=== PATIENT | female | born 1980 | race Two or more races ===

== ENCOUNTER 2020-05-30 22:36 | Emergency (ER) | payer BC ==
[2020-05-30] MEDS ORDERED: Sodium Chloride 0.9% 10 ML Syringe FLUSH PRN (23:08)
[2020-05-30] MEDS ORDERED: Lactated Ringers 1,000 ML IV ONE (23:10)
--- NOTE | 2020-05-30 23:13 | EDM.PDOC ---
ED HPI GENERAL MEDICAL PROBLEM - General Stated Complaint: SOB AND HEART PALPITIONS Time Seen by Provider: 05/30/20 23:00 Source of Information: Reports: Patient History Limitations: Reports: No Limitations - History of Present Illness INITIAL COMMENTS - FREE TEXT/NARRATIVE: Patient comes emergency department today with complaints of shortness of breath and palpitations and racing heart sensation. This patient relates for the past 3 weeks she has had a new onset of racing heart sensation. She is getting more anxious about it has become short of breath over the past couple of days. She has had not had any syncope. No weakness dizziness lightheadedness. No recent falls head trauma. No pain in her chest. No recent fever or illness. No nausea no vomiting. No diarrhea. She has no increased pain and really does not have any pain anywhere. Abdominal pain nausea or vomiting. No hematuria dysuria or urinary frequency. She was tested for Covid a couple of days ago and was found to be negative. She has no medications that she takes chronically. She denies any recreational drug use or alcohol usage. No Covid exposure no Covid symptoms. She has had about a 10 pound weight loss in the past 3 weeks unintentional. - Related Data Home Meds: Home Meds atenoloL [Atenolol] 25 mg PO DAILY #30 tablet 05/31/20 [Rx] cephALEXin [Cephalexin] 500 mg PO QID #20 capsule 05/31/20 [Rx] ED ROS GENERAL - Review of Systems Review Of Systems: Comprehensive ROS is negative, except as noted in HPI. ED EXAM, GENERAL - Physical Exam Exam: See Below Exam Limited By: No Limitations General Appearance: Alert, WD/WN, No Apparent Distress Ears: Normal External Exam, Normal TMs Nose: Normal Inspection Throat/Mouth: Normal Inspection Head: Atraumatic, Normocephalic Neck: Normal Inspection, Supple, Non-Tender, Full Range of Motion Respiratory/Chest: No Respiratory Distress, Lungs Clear, Normal Breath Sounds, No Accessory Muscle Use, Chest Non-Tender Cardiovascular: Normal Peripheral Pulses, Regular Rate, Rhythm, Tachycardia Peripheral Pulses: 2+: Radial (L), Radial (R), Posterior Tibial (L), Posterior Tibial (R), Dorsalis Pedis (L), Dorsalis Pedis (R) GI/Abdominal: Normal Bowel Sounds, Soft, Non-Tender (Female) Exam: Deferred Rectal (Female) Exam: Deferred Back Exam: Normal Inspection, Full Range of Motion Extremities: Normal Inspection, Normal Range of Motion, Non-Tender, No Pedal Edema, Normal Capillary Refill Neurological: Alert, Oriented, Normal Cognition, No Motor/Sensory Deficits Psychiatric: Normal Affect, Normal Mood Skin Exam: Warm, Dry, Intact, Normal Color, No Rash #1 Interpretation EKG Date: 05/30/20 Time: 22:42 Rhythm: NSR (RSR ' in V1 or V2.) Rate (Beats/Min): 132 [place]: Normal P-Wave: Present QRS: Normal ST-T: Normal QT: Normal Comparison: NA - No Prior EKG Course - Vital Signs Last Recorded V/S: Last Vital Signs Temp Pulse 124 H 05/31/20 01:10 Resp BP 150/89 H 05/31/20 01:10 Pulse Ox - Orders/Labs/Meds Orders: Active Orders 24 hr Category Date Time Status EKG Documentation Completion [RC] STAT Care 05/30/20 23:08 Active Chest 2V [CR] Urgent Exams 05/30/20 23:07 Taken CULTURE URINE [RM] Stat Lab 05/30/20 23:23 Received THYROXINE (T4) [REF] Stat Lab 05/31/20 00:42 Received Sodium Chloride 0.9% [Saline Flush] Med 05/30/20 23:08 Active 10 ml FLUSH ASDIRECTED PRN Peripheral IV Insertion Adult [OM.PC] Stat Oth 05/30/20 23:08 Ordered Medication Orders Sodium Chloride (Saline Flush) 10 ml FLUSH ASDIRECTED PRN PRN Reason: Keep Vein Open Labs: Laboratory Tests 05/30/20 05/30/20 05/30/20 Range/Units 23:23 23:23 23:23 WBC (4.0-10.0) x10^3/uL RBC (4.00-5.50) x10^6/uL Hgb (12.0-16.0) g/dL Hct (33.0-47.0) % MCV (78.0-93.0) fL MCH (26.0-32.0) pg MCHC (32.0-36.0) g/dL RDW Coeff of Jimmie (10.0-15.0) % Plt Count (130-400) x10^3/uL Neut % (Auto) (50.0-80.0) % Lymph % (Auto) (25.0-50.0) % [place] % (Auto) (2.0-11.0) % Eos % (Auto) (0.0-4.0) % Baso % (Auto) (0.2-1.2) % Sodium (136-145) mmol/L Potassium (3.5-5.1) mmol/L Chloride (98-107) mmol/L Carbon Dioxide (21-32) mmol/L Anion Gap (10-20) mmol/L BUN (7-18) mg/dL Creatinine (0.55-1.02) mg/dL Est Cr Clr Drug Dosing Estimated GFR (MDRD) Glucose (74-106) mg/dL Calcium (8.5-10.1) mg/dL Corrected Calcium (8.5-10.1) mg/dL Magnesium (1.8-2.4) mg/dL Total Bilirubin (0.2-1.0) mg/dL AST (15-37) U/L ALT (14-59) U/L Alkaline Phosphatase (46-116) U/L Troponin I (<=0.056) ng/mL Total Protein (6.4-8.2) g/dL Albumin (3.4-5.0) g/dL Globulin Albumin/Globulin Ratio TSH, Ultra Sensitive (0.358-3.74) uIU/mL Urine Color Yellow (YELLOW) Urine Appearance Slightly cloudy H (CLEAR) Urine pH 7.0 (5.0-8.0) Ur Specific [place] 1.020 Urine Protein Negative (NEGATIVE) mg/dL Urine Glucose (UA) Negative (NEGATIVE) mg/dL Urine Ketones Negative (NEGATIVE) mg/dL Urine Occult Blood Negative (NEGATIVE) Urine Nitrite Positive H (NEGATIVE) Urine Bilirubin Negative (NEGATIVE) Urine Urobilinogen 0.2 (0.2) EU/dL Ur Leukocyte Esterase Trace H (NEGATIVE) Urine RBC 0-5 (NOT SEEN) /HPF Urine WBC 5-10 H (NOT SEEN) /HPF Ur Squamous Epith Cells Few H (NEGATIVE) /HPF Urine Bacteria Many H (NEGATIVE) /HPF Urine HCG, Qual Negative (NEGATIVE) Urine Opiates Screen Negative (NEGATIVE) Ur Buprenorphine Scrn Negative (NEGATIVE) Ur Oxycodone Screen Negative (NEGATIVE) Ur EDDP (Meth Metab) Negative (NEGATIVE) Urine Methadone Screen Negative (NEGATIVE) Ur Barbiturates Screen Negative (NEGATIVE) Ur Tricyclics Screen Negative (NEGATIVE) Ur Phencyclidine Scrn Negative (NEGATIVE) Ur Amphetamine Screen Negative (NEGATIVE) U Methamphetamines Scrn Negative (NEGATIVE) Urine MDMA Screen Negative (NEGATIVE) U Benzodiazepines Scrn Negative (NEGATIVE) U Cocaine Metab Screen Negative (NEGATIVE) U Marijuana (THC) Screen Negative (NEGATIVE) 05/30/20 05/30/20 Range/Units 23:30 23:30 WBC 5.1 (4.0-10.0) x10^3/uL RBC 4.60 (4.00-5.50) x10^6/uL Hgb 8.3 L (12.0-16.0) g/dL Hct 28.4 L (33.0-47.0) % MCV 61.7 L (78.0-93.0) fL MCH 18.0 L (26.0-32.0) pg MCHC 29.2 L (32.0-36.0) g/dL RDW Coeff of Jimmie 19.8 H (10.0-15.0) % Plt Count 348 (130-400) x10^3/uL Neut % (Auto) 48.8 L (50.0-80.0) % Lymph % (Auto) 32.7 (25.0-50.0) % [place] % (Auto) 16.1 H (2.0-11.0) % Eos % (Auto) 2.0 (0.0-4.0) % Baso % (Auto) 0.4 (0.2-1.2) % Sodium 142 (136-145) mmol/L Potassium 3.4 L (3.5-5.1) mmol/L Chloride 105 (98-107) mmol/L Carbon Dioxide 26 (21-32) mmol/L Anion Gap 14.4 (10-20) mmol/L BUN 8 (7-18) mg/dL Creatinine 0.8 (0.55-1.02) mg/dL Est Cr Clr Drug Dosing TNP Estimated GFR (MDRD) > 60 Glucose 80 (74-106) mg/dL Calcium 8.8 (8.5-10.1) mg/dL Corrected Calcium 9.20 (8.5-10.1) mg/dL Magnesium 1.9 (1.8-2.4) mg/dL Total Bilirubin 0.2 (0.2-1.0) mg/dL AST 19 (15-37) U/L ALT 30 (14-59) U/L Alkaline Phosphatase 61 (46-116) U/L Troponin I < 0.017 (<=0.056) ng/mL Total Protein 7.4 (6.4-8.2) g/dL Albumin 3.5 (3.4-5.0) g/dL Globulin 3.9 Albumin/Globulin Ratio 0.90 TSH, Ultra Sensitive < 0.007 L (0.358-3.74) uIU/mL Urine Color (YELLOW) Urine Appearance (CLEAR) Urine pH (5.0-8.0) Ur Specific [place] Urine Protein (NEGATIVE) mg/dL Urine Glucose (UA) (NEGATIVE) mg/dL Urine Ketones (NEGATIVE) mg/dL Urine Occult Blood (NEGATIVE) Urine Nitrite (NEGATIVE) Urine Bilirubin (NEGATIVE) Urine Urobilinogen (0.2) EU/dL Ur Leukocyte Esterase (NEGATIVE) Urine RBC (NOT SEEN) /HPF Urine WBC (NOT SEEN) /HPF Ur Squamous Epith Cells (NEGATIVE) /HPF Urine Bacteria (NEGATIVE) /HPF Urine HCG, Qual (NEGATIVE) Urine Opiates Screen (NEGATIVE) Ur Buprenorphine Scrn (NEGATIVE) Ur Oxycodone Screen (NEGATIVE) Ur EDDP (Meth Metab) (NEGATIVE) Urine Methadone Screen (NEGATIVE) Ur Barbiturates Screen (NEGATIVE) Ur Tricyclics Screen (NEGATIVE) Ur Phencyclidine Scrn (NEGATIVE) Ur Amphetamine Screen (NEGATIVE) U Methamphetamines Scrn (NEGATIVE) Urine MDMA Screen (NEGATIVE) U Benzodiazepines Scrn (NEGATIVE) U Cocaine Metab Screen (NEGATIVE) U Marijuana (THC) Screen (NEGATIVE) Meds: Medications Generic Name Dose Route Start Last Admin Trade Name Freq PRN Reason Stop Dose Admin Sodium Chloride 10 ml 05/30/20 23:08 Saline Flush FLUSH ASDIRECTED PRN Keep Vein Open Discontinued Medications Generic Name Dose Route Start Last Admin Trade Name Freq PRN Reason Stop Dose Admin Atenolol 25 mg 05/31/20 01:02 05/31/20 01:10 Tenormin PO 05/31/20 01:03 25 mg ONETIME ONE Administration Cephalexin 500 mg 05/31/20 01:02 12/05/20 01:10 Keflex PO 05/31/20 01:03 500 mg ONETIME ONE Administration Lactated Ringer's 1,000 mls @ 999 mls/hr 05/30/20 23:10 05/30/20 23:30 Ringers, Lactated IV 05/31/20 00:10 999 mls/hr ONETIME ONE Administration - Radiology Interpretation Free Text/Narrative:: Chest x-ray per radiology shows no active cardiopulmonary process. - Re-Assessments/Exams Free Text/Narrative Re-Assessment/Exam: 05/31/20 01:45 IV was established 1 L of LR wide open. Labs are drawn. 05/31/20 01:46 CBC with a WBC of 5.1 and a hemoglobin of 8.3. She also has a low MCV and MCH. We will add some iron studies as well Creatinine normal sodium 142 potassium 3.4 magnesium 1.9 troponin less than 0.017. Her TSH is less than 0.007 which is really not measurable. Urinalysis positive for nitrites trace leukocyte esterase 5-10 WBCs. Urine culture pending. We will start her on Keflex for urinary tract infection. Her heart rate did not change with the IV fluid. She clearly has hyperthyroidism as her TSH is not measurable. T4 is pending. Also some iron studies are pending. We will start her on atenolol 25 mg a day. I do not see any thyroid storm or thyroid toxicosis at this time. She already has an appointment with the primary care provider on Tuesday for recheck. Discussed the plan of care and the findings for the concern of hyperthyroidism. She is comfortable with this and her questions are answered. I will make sure and get the iron studies to the primary care provider for her follow-up on Tuesday. Departure - Departure Time of Disposition: : Disposition: Home, Self-Care 01 Clinical Impression: Hyperthyroidism UTI (urinary tract infection) Qualifiers: Urinary tract infection type: site unspecified Hematuria presence: without hematuria Qualified Code(s): N39.0 - Urinary tract infection, site not specified Anemia Qualifiers: Anemia type: unspecified type Qualified Code(s): D64.9 - Anemia, unspecified Prescriptions: atenoloL [Atenolol] 25 mg PO DAILY #30 tablet cephALEXin [Cephalexin] 500 mg PO QID #20 capsule Referrals: PCP,None [Primary Care Provider] - Additional Instructions: Start Atenolol, 1 tablet daily. We will start with 25mg tablet daily. If on tuesday you still have the palpitations and heart rate over 100 bpm increase to to tablet once daily for a total of 50mg a day. RX sent to [facility]. Start Cephalexin 1 tablet 4 times a day for the next 5 days for the UTI. RX sent to [facility]. Keep your appointment with Dr. Kaur on tuesday as planned. Call me this weekend if you have any problems or questions I am here till tuesday. Return to the ED if new or worsening symptoms. Sepsis Event Note (ED) - Focused Exam Vital Signs: Vital Signs Pulse BP 05/31/20 01:10 124 H 150/89 H - My Orders Last 24 Hours: My Active Orders 05/30/20 23:07 Chest 2V [CR] Urgent 05/30/20 23:08 EKG Documentation Completion [RC] STAT Sodium Chloride 0.9% [Saline Flush] 10 ml FLUSH ASDIRECTED PRN Peripheral IV Insertion Adult [OM.PC] Stat 05/30/20 23:23 CULTURE URINE [RM] Stat 05/31/20 00:42 THYROXINE (T4) [REF] Stat - Assessment/Plan Last 24 Hours: My Active Orders 05/30/20 23:07 Chest 2V [CR] Urgent 05/30/20 23:08 EKG Documentation Completion [RC] STAT Sodium Chloride 0.9% [Saline Flush] 10 ml FLUSH ASDIRECTED PRN Peripheral IV Insertion Adult [OM.PC] Stat 05/30/20 23:23 CULTURE URINE [RM] Stat 05/31/20 00:42 THYROXINE (T4) [REF] Stat
[2020-05-30 23:42] LABS: BARBITURATE SCREEN,URINE NEGATIVE (NEGATIVE); BENZODIAZEPINES SCREEN,URINE NEGATIVE (NEGATIVE); EDDP,URINE SCREEN NEGATIVE (NEGATIVE); METHAMPHETAMINE SCREEN, URINE NEGATIVE (NEGATIVE); TCA SCREEN,URINE NEGATIVE (NEGATIVE); THC SCREEN,URINE 50 NG/ML NEGATIVE (NEGATIVE)
[2020-05-31 00:08] LABS: CHLORIDE,CL 105 mmol/L (98-107); SODIUM,NA 142 mmol/L (136-145)
[2020-05-31 00:12] LABS: ANION GAP 14.4 mmol/L (10-20)
[2020-05-31] MEDS ORDERED: Cephalexin 500 MG Cap PO ONE (01:02)
[2020-05-31] MEDS ORDERED: Atenolol 25 MG Tab PO ONE (01:02)
--- NOTE | 2020-05-31 07:35 | CR ---
[id number] RAD/RAD Chest PA And Lateral EXAM: RAD Chest PA And Lateral INDICATION: PALPITATION, SHORTNESS OF BREATH COMPARISON: None. DISCUSSION: Cardiomediastinal silhouette is normal in size and contour. Lungs are clear. No pleural effusion or pneumothorax. IMPRESSION: Negative examination of the chest. Zeb Wilhelm MD 05/31/20 0734 Thank you for allowing us to participate in the care of your patient.
== END 2020-05-31 01:18 | disposition home or self-care (01) ==
LOC: SUPCPDRO 22:36 → VM.ED 22:36
DX: E05.90 Thyrotoxicosis, unspecified without thyrotoxic crisis or storm (principal); N39.0 Urinary tract infection, site not specified; D64.9 Anemia, unspecified; R00.0 Tachycardia, unspecified
CPT/HCPCS: 71046; 80053; 80305; 81001; 81025; 82728; 83540; 83550; 83735; 84436; 84443; 84484; 85025; 87086; 87088; 87186; 93005; 99285; A9270; J7120; 93010; 99284

== ENCOUNTER 2020-07-20 16:56 | Emergency (ER) | payer BC ==
[2020-07-20] MEDS ORDERED: diphenhydrAMINE 50 MG/ML SDV IM ONE (17:21)
[2020-07-20] MEDS ORDERED: methylPREDNISolone Sodium Succinate 125 MG/2 ML SDV IM ONE (17:21)
[2020-07-20] MEDS ORDERED: hydrOXYzine HCl 25 MG Tab PO ONE (17:21)
--- NOTE | 2020-07-20 17:28 | EDM.PDOC ---
ED HPI GENERAL MEDICAL PROBLEM - General Chief Complaint: Allergic Reaction Stated Complaint: RASH AND ITCHING Time Seen by Provider: 07/20/20 17:15 Source of Information: Reports: Patient History Limitations: Reports: No Limitations - History of Present Illness INITIAL COMMENTS - FREE TEXT/NARRATIVE: Ananya is a 39 year old female who presents today with a diffuse pruritic rash. States started to notice small rash yesterday but awoke with symptoms much worse this am. Took 2 Benadryl but seems to be worsening. Has significant hives throughout. [place] short of breath. Denies dysphagia but states has been very thirsty. Is unaware of any new lotions, soaps, clothing or foods. Did start a thyroid med at the beginning of June but had not had any issues with that up to this point. Onset: Gradual Duration: Day(s):, Getting Worse Location: Reports: Generalized Quality: Reports: Other (pruritic) Associated Symptoms: Reports: Shortness of Breath. Denies: Chest Pain, Cough, Fever/Chills, Headaches, Loss of Appetite, Malaise, Nausea/Vomiting, Syncope, Weakness Treatments RESERVATIONS SPECIALIST: Reports: Other Medication(s) Other Treatments RESERVATIONS SPECIALIST: Benadryl - Related Data Allergies Allergy/AdvReac Type Severity Reaction Status Date / Time No Known Allergies Allergy Verified 07/20/20 17:31 Home Meds: Home Meds atenoloL [Atenolol] 25 mg PO DAILY #30 tablet 05/31/20 [Rx] cephALEXin [Cephalexin] 500 mg PO QID #20 capsule 05/31/20 [Rx] methIMAzole [Methimazole] 10 mg PO BID 07/20/20 [History] Past Medical History Endocrine/Metabolic History: Reports: Hypothyroidism Social & Family History - Tobacco Use Tobacco Use Status *Q: Unknown Ever Used Tobacco ED ROS ALLERGIC REACTION - Review of Systems Review Of Systems: See Below Constitutional: Denies: Fever, Chills, Malaise, Weakness, Fatigue HEENT: Denies: Ear Pain, Sinus Problem, Throat Pain, Throat Swelling Respiratory: Reports: Shortness of Breath. Denies: Cough Cardiovascular: Denies: Chest Pain, Edema, Lightheadedness Endocrine: Denies: Fatigue GI/Abdominal: Denies: Abdominal Pain, Nausea, Vomiting : Reports: No Symptoms Musculoskeletal: Reports: No Symptoms Skin: Reports: Pruritis, Rash Neurological: Reports: No Symptoms Psychiatric: Reports: No Symptoms ED EXAM GENERAL NO PERIP PULSE - Physical Exam Exam: See Below Exam Limited By: No Limitations General Appearance: Alert, WD/WN, No Apparent Distress Ears: Normal External Exam, Normal TMs Nose: Normal Inspection, Normal Mucosa Throat/Mouth: Normal Inspection, Normal Oropharynx Head: Normocephalic Neck: Normal Inspection, Supple, Non-Tender Respiratory/Chest: No Respiratory Distress, Lungs Clear, Normal Breath Sounds Cardiovascular: Regular Rate, Rhythm GI/Abdominal: Normal Bowel Sounds, Soft, Non-Tender Neurological: Alert, Oriented Skin Exam: Other (diffuse hives throughout from face to feet) Course - Vital Signs Last Recorded V/S: Last Vital Signs Temp 99.3 F 07/20/20 17:05 Pulse 100 07/20/20 17:05 Resp 20 07/20/20 17:05 BP 115/71 07/20/20 17:05 Pulse Ox 100 07/20/20 17:05 - Orders/Labs/Meds Meds: Medications Discontinued Medications Generic Name Dose Route Start Last Admin Trade Name Kilo PRN Reason Stop Dose Admin Diphenhydramine HCl 50 mg 07/20/20 17:21 Benadryl IM 07/20/20 17:22 ONETIME ONE Hydroxyzine HCl 0.5 - 1 mg 07/20/20 17:21 Atarax PO 07/20/20 17:22 ONETIME ONE Methylprednisolone Sodium Succinate 125 mg 07/20/20 17:21 Solu-Medrol IM 07/20/20 17:22 ONETIME ONE Departure - Departure Time of Disposition: 17:33 Disposition: Home, Self-Care 01 Condition: Good Clinical Impression: Allergic reaction Qualifiers: Encounter type: initial encounter Qualified Code(s): T78.40XA - Allergy, unspecified, initial encounter - Discharge Information *PRESCRIPTION DRUG MONITORING PROGRAM REVIEWED*: No *COPY OF PRESCRIPTION DRUG MONITORING REPORT IN PATIENT ASHANTI: No Instructions: Allergies, Adult, [id number] Forms: ED Department Discharge Additional Instructions: 1. Benadryl 50 mg every 6 hours for 2 more doses, starting at midnight tonight 2. May use hydroxyzine 1/2 to 1 tab every 6 hours for itch if not contained by Benadryl 3. Prednisone 20 mg~ 2 tabs daily for 4 days, start tomorrow 4. Follow up if any breathing difficulties, difficulty swallowing or persistent rash 5. Call or see primary care provider if rash unresolved Sepsis Event Note (ED) - Focused Exam Vital Signs: Vital Signs Temp Pulse Resp BP Pulse Ox 07/20/20 17:05 99.3 F 100 20 115/71 100
== END 2020-07-20 18:02 | disposition home or self-care (01) ==
LOC: VM.ED 16:56
DX: L50.0 Allergic urticaria (principal); R06.02 Shortness of breath
CPT/HCPCS: 96372; 99283; 99284; A9270-GY; J1200; J2930